=== PATIENT | female | born 1980 | race Caucasian/White ===

== ENCOUNTER → 2017-12-25 | Outpatient (CLI) | payer BC ==
--- NOTE | 2017-12-25 10:33 | WWHP ---
[facility] - HISTORY AND PHYSICAL DATE OF SERVICE: 12/25/2017 CHIEF COMPLAINT: The patient is here for her routine gynecologic exam and mammogram. HPI: This is a 37-year-old, G2, P2, with an LMP of 12/19/2017. Her is status post vasectomy. Menses have been regular every month. She is without gynecologic complaints. PAST MEDICAL HISTORY: Unremarkable. MEDICATIONS: None. ALLERGIES: Allergies to SULFA, which caused hives. PAST SURGICAL HISTORY: None. 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 SOCIAL HISTORY: She denies tobacco and drug use and has about one alcohol containing drink per month. 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 FAMILY HISTORY: Unchanged from the 03/01/2016 H and P. REVIEW OF SYSTEMS: She has lost about 6 pounds over the last 1-1/2 years. She states she has gone to a vegetarian diet. She denies respiratory, cardiac or GI problems. PHYSICAL EXAM: Blood pressure 107/74, height 5 feet 5 inches, weight 141 pounds, temperature 98.6, pulse 92, BMI 23. This is a well-developed, well-nourished, white female, who is alert and oriented x3, in no acute distress. HEENT is within normal limits. NECK: Supple without mass or thyromegaly. CHEST AND LUNGS: Clear to auscultation. HEART: Regular rate and rhythm. Breasts are without mass or discharge. Axillary exam is negative for adenopathy. BACK: Negative for CVA tenderness. ABDOMEN: Soft, nontender, without palpable masses. PELVIC EXAM: Normal external genitalia. Cervix and vagina revealed small amount of old menstrual type blood. There is no odor. The cervix and vagina appear normal. The uterus is mid position, nongravid size and nontender. There are no palpable adnexal masses or tenderness. Rectal exam is negative for mass or tenderness. EXTREMITIES: Nontender. IMPRESSION: 1. A 37-year-old gynecologically healthy female with normal gynecologic exam whose as is status post vasectomy. 2. Family history of breast cancer in a maternal and paternal aunt. PLAN: 1. Pap smear was performed by request of the patient even though I had not recommended Pap smear done at this visit because she had a normal one less than 2 years ago. 2. Self-breast examination was discussed. 3. Baseline screening mammogram will be done today because of her family history. 4. Osteoporosis prevention was discussed. 5. She will return in one year. MMODL / IJN: [id number] /
--- NOTE | 2017-12-25 10:34 | MM ---
Reason for exam: screening (asymptomatic). Baseline mammogram. History: Family history of breast cancer in maternal aunt and breast cancer in paternal aunt. Physical Findings: Dr. Jernigan did not find any significant physical abnormalities on exam. MG Screening Mammo w CAD Bilateral CC and MLO view(s) were taken. The breast tissue is heterogeneously dense. This may lower the sensitivity of mammography. There is no discrete abnormality. These results were verbally communicated with the patient and result sheet given to the patient on 12/25/17. ASSESSMENT: Negative, BI-RAD 1 RECOMMENDATION: Routine screening mammogram of both breasts at age 41.
== END | disposition home or self-care (01) ==
LOC: WWCWWP 09:04
PROVIDERS: ATTEND Obstetrics & Gynecology
DX: Z12.31 Encounter for screening mammogram for malignant neoplasm of breast (principal)
CPT/HCPCS: 77067

== ENCOUNTER → 2018-12-11 | Outpatient (CLI) | payer BC ==
[2018-12-11 10:39] LABS: Basophils % (A) 1 %; Eosinophils # (A) 0.1 k/uL (0-0.7); Eosinophils % (A) 2 %; HCT 40.8 % (34.0-46.0); HGB 12.8 gm/dL (11.4-16.0); Lymphocytes # (A) 1.4 k/uL (1.0-4.8); Lymphocytes % (A) 30 %; MCH 27.3 pg (25.0-35.0); MCHC 31.3 g/dL (31.0-37.0); MCV 87.2 fL (80.0-100.0); Mean Platelet Volume 7.5; Monocytes # (A) 0.3 k/uL (0-1.0); Monocytes % (A) 7 %; Neutrophils # (A) 2.9 k/uL (1.3-7.7); Neutrophils % (A) 59 %; Platelet Count 184 k/uL (150-450); RBC 4.68 m/uL (3.80-5.40); RDW 12.6 % (11.5-15.5); WBC 4.9 k/uL (3.8-10.6)
[2018-12-11 15:52] LABS: ALT 21 U/L (8-44); AST 25 U/L (13-35); Albumin/Globulin Ratio 2.15 (1.60-3.17); Alkaline Phosphatase 48 U/L (41-126); Calcium 9.3 mg/dL (8.7-10.3); Carbon Dioxide 29.2 mmol/L (21.6-31.8); Chloride 107 mmol/L (96-109); Cholesterol 129 mg/dL (0-200); Glucose 87 mg/dL (70-110); Potassium 4.3 mmol/L (3.5-5.5); Sodium 141 mmol/L (135-145); Total Bilirubin 0.9 mg/dL (0.2-1.2); Total Protein 6.3 g/dL (6.2-8.2); Triglycerides <50.0 mg/dL (0.0-149.0); VLDL Calculation 9.98 mg/dL (5.00-40.00)
== END ==
LOC: LABWHC1 09:39
PROVIDERS: ATTEND Nurse Practitioner Family
DX: Z00.00 Encounter for general adult medical examination without abnormal findings (principal); L65.9 Nonscarring hair loss, unspecified
CPT/HCPCS: 36415; 80053; 80061; 84439; 84443; 84481; 85025

== ENCOUNTER → 2019-02-18 | Outpatient (CLI) | payer BC ==
[2019-02-18 16:00] VITALS: BP 104/72; PULSE 75; RESP 20; TEMP 98.5; BMI 24.3
--- NOTE | 2019-02-18 16:43 | P.HPOB ---
History of Present Illness H&P Date: 02/18/19 Chief Complaint: The patient is here for routine gynecologic exam. This is a 38-year-old with an LMP of 02/03/2019. The patient is without gynecologic complaints. Her 's status post vasectomy. Review of Systems The patient has gained 5 pounds over the last year. She denies respiratory, cardiac, or G.I. problems. 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 - Past Family History Aunt Family Medical History: Cancer Additional Family Medical History / Comment(s): Maternal and paternal aunt had breast cancer in their 50s. Father Family Medical History: No Reported History Additional Family Medical History / Comment(s): Paternal grandmother had diabetes and heart disease. Medications and Allergies Home Medications Medication Instructions Recorded Confirmed Type No Known Home Medications 02/18/19 02/18/19 History Allergies Allergy/AdvReac Type Severity Reaction Status Date / Time Sulfa (Sulfonamide AdvReac Rash/Hives Unverified 02/18/19 15:55 Antibiotics) Exam Vital Signs Temp Pulse Resp BP 02/18/19 15:56 98.5 F 75 20 104/72 Intake and Output 02/18/19 02/18/19 02/18/19 06:59 14:59 22:59 Other: Weight 66.224 kg Height 5'5", weight 146 pounds, BMI 24.3. This is a well-developed well-nourished white female who is alert and oriented times 3 in no acute distress. HEENT: Within normal limits. NECK: Supple without mass or thyromegaly. CHEST AND LUNGS: Clear to auscultation. HEART: Regular rate and rhythm. BREASTS: Are without mass or discharge. AXILLARY EXAM: Negative for adenopathy. BACK: Negative for CVA tenderness. ABDOMEN: Soft, nontender, without palpable masses. PELVIC EXAM: Normal external genitalia. Cervix and vagina appear normal. There is no unusual discharge. There is no evidence of prolapse. The uterus is midposition, nongravid size and nontender. There are no palpable adnexal masses or tenderness. RECTAL EXAM: negative for mass or tenderness. EXTREMITIES: Nontender. IMPRESSION: 1. 38-year-old female whose is status post vasectomy with normal gynecologic exam. 2. Family history of breast cancer in 2 aunts. PLAN: 1. Pap smear was deferred since she had a normal one on 12/25/2017. 2. Self breast awareness was discussed with the patient. 3. She had a negative baseline screening mammogram on 12/25/2017. We will plan on starting regular mammograms at age 41. We will consider doing it earlier if she has new family history of breast cancer. 4. She states she is looking for a new primary care physician. 5. She was advised to return in one year for her annual well woman exam.
== END ==
LOC: WWCWWP 15:43
PROVIDERS: ATTEND Obstetrics & Gynecology
DX: Z53.9 Procedure and treatment not carried out, unspecified reason (principal)

== ENCOUNTER → 2021-12-13 | Outpatient (CLI) | payer BC ==
[2021-12-13 15:58] VITALS: BP 126/83; PULSE 79; RESP 18; TEMP 98.4
--- NOTE | 2021-12-13 16:31 | P.HPOB ---
History of Present Illness H&P Date: 12/13/21 Chief Complaint: The patient is here for her routine gynecologic exam. This is a 41-year-old with an LMP of 11/29/2021. The patient's is status post vasectomy. The patient is without gynecologic complaints. Review of Systems The patient has gained 2 pounds over the last 2 years. She denies respiratory, cardiac, or G.I. problems. 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 History of Any Multi-Drug Resistant Organisms: None Reported Past Surgical History: No Surgical Hx Reported Past Psychological History: No Psychological Hx Reported Smoking Status: Never smoker Past Alcohol Use History: Occasional (1 per month) Past Drug Use History: None Reported Additional History: She has been since 2008. 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 - Past Family History Father Family Medical History: No Reported History Additional Family Medical History / Comment(s): Paternal grandmother had diabetes and heart disease. Aunt Family Medical History: Cancer Additional Family Medical History / Comment(s): Maternal and paternal aunt had breast cancer in their 50s. Medications and Allergies Home Medications Medication Instructions Recorded Confirmed Type No Known Home Medications 02/18/19 12/13/21 History Allergies Allergy/AdvReac Type Severity Reaction Status Date / Time Sulfa (Sulfonamide AdvReac Rash/Hives Unverified 12/13/21 15:49 Antibiotics) Exam Vital Signs Temp Pulse Resp BP Pulse Ox 12/13/21 15:50 98.4 F 79 18 126/83 100 Intake and Output 12/13/21 12/13/21 12/13/21 06:59 14:59 22:59 Other: Weight 67.132 kg Height 5 feet 4-1/2 inches, weight 148 pounds, BMI 25.0. This is a well-developed well-nourished white female who is alert and oriented times 3 in no acute distress. HEENT: Within normal limits. NECK: Supple without mass or thyromegaly. CHEST AND LUNGS: Clear to auscultation. HEART: Regular rate and rhythm. BREASTS: Are without mass or discharge. AXILLARY EXAM: Negative for adenopathy. BACK: Negative for CVA tenderness. ABDOMEN: Soft, nontender, without palpable masses. PELVIC EXAM: Normal external genitalia. Cervix and vagina appear normal. There is no unusual discharge. There is no evidence of prolapse. The uterus is midposition, nongravid size and nontender. There are no palpable adnexal masses or tenderness. RECTAL EXAM: negative for mass or tenderness and is negative for occult blood. EXTREMITIES: Nontender. IMPRESSION: 1. 41-year-old female whose is status post vasectomy, with normal gynecologic exam. 2. Family history of breast cancer in 2 aunts. PLAN: 1. Pap smear cotest was performed. 2. Self breast awareness was discussed with the patient. We have also discussed symptoms associated with inflammatory breast cancer. 3. I recommended yearly screening mammogram because of her family history. The order slip was given to the patient for this. 4. Osteoporosis prevention was discussed. I have stressed the importance of adequate calcium, vitamin D and regular exercise. Recommended amounts of calcium and vitamin D were also discussed. 5. She has received her Covid vaccination series and booster. 6. She was advised to return in one year for her annual well woman exam.
== END ==
LOC: WWCWWP 15:41
PROVIDERS: ATTEND Obstetrics & Gynecology
DX: Z01.419 Encounter for gynecological examination (general) (routine) without abnormal findings (principal); Z80.3 Family history of malignant neoplasm of breast; Z88.2 Allergy status to sulfonamides

== ENCOUNTER → 2022-01-19 | Outpatient (CLI) | payer BC ==
--- NOTE | 2022-01-19 14:24 | MM ---
Reason for exam: screening (asymptomatic). Last mammogram was performed 4 years and 1 month ago. History: Family history of breast cancer in 2 paternal aunts at age 50. Physical Findings: A clinical breast exam by your physician is recommended on an annual basis and results should be correlated with mammographic findings. MG 3D Screening Mammo W/Cad Bilateral CC and MLO view(s) were taken. Prior study comparison: December 25, 2017, bilateral MG screening mammo w CAD. The breast tissue is extremely dense which could obscure a lesion on mammography. Asymmetric breast tissue in the left axilla is stable. There is no discrete abnormality. ASSESSMENT: Negative, BI-RAD 1 RECOMMENDATION: Routine screening mammogram of both breasts in 1 year. Some consider bilateral ultrasound surveillance in patient with extremely dense fibroglandular tissue.
== END | disposition home or self-care (01) ==
LOC: RADMAMWWP 07:28
PROVIDERS: ATTEND Obstetrics & Gynecology
DX: Z12.31 Encounter for screening mammogram for malignant neoplasm of breast (principal); Z80.3 Family history of malignant neoplasm of breast
CPT/HCPCS: 77063; 77067

== ENCOUNTER → 2023-04-17 | Outpatient (CLI) | payer BC ==
--- NOTE | 2023-04-18 08:51 | MM ---
Reason for Exam: Screening (asymptomatic). Last mammogram was performed 1 year(s) and 3 month(s) ago. Patient History: Menarche at age 15. First Full-Term at age 28. Patient has history of breast feeding. Paternal aunt had breast cancer, age 50. Paternal aunt had breast cancer, age 50. Last menstrual period: 03/22/2023 Risk Values: [place] 5 year model risk: 0.6%. NCI Lifetime model risk: 10.1%. Prior Study Comparison: 12/25/2017 Bilateral Screening Mammogram, [facility]. 01/19/2022 Bilateral Screening Mammogram, [facility]. Tissue Density: The breast tissue is heterogeneously dense. This may lower the sensitivity of mammography. Findings: Analyzed By CAD. There is no suspicious group of microcalcifications or new suspicious mass in either breast. Overall Assessment: Negative, BI-RAD 1 Management: Screening Mammogram of both breasts in 1 year. . Patient should continue monthly self-breast exams. A clinical breast exam by your physician is recommended on an annual basis. This exam should not preclude additional follow-up of suspicious palpable abnormalities. Note on Naida scores and lifetime risk: 1. A Naida score greater than 3% is considered moderate risk. If this is the case, consider specialist referral to assess eligibility for a risk reducing agent. 2. If overall lifetime risk for the development of breast cancer is 20% or higher, the patient may qualify for future screening with alternating mammogram and breast MRI. Electronically signed and approved by: Valente West M.D. Radiologis
== END | disposition home or self-care (01) ==
LOC: RADMAMWWP 08:11
PROVIDERS: ATTEND Obstetrics & Gynecology
DX: Z12.31 Encounter for screening mammogram for malignant neoplasm of breast (principal); Z80.3 Family history of malignant neoplasm of breast
CPT/HCPCS: 77063; 77067

== ENCOUNTER → 2024-05-06 | Outpatient (CLI) | payer BC ==
[2024-05-06 09:23] VITALS: BP 108/78; PULSE 74; RESP 16; TEMP 98.3
--- NOTE | 2024-05-06 10:18 | P.HPOB ---
History of Present Illness H&P Date: 05/06/24 Chief Complaint: The patient is here for her routine gynecologic exam and ma mmogram. This is a 43-year-old with an LMP of December 2023. Patient's is status post vasectomy. She states her menstrual periods were getting more irregular about every 1 to 3 months. She was also having significant hot flashes at night. She started using HRT through Dr. Solis in 2022. She states that it has helped significantly. She uses some form of hormone pellet which includes estrogen and testosterone every 3 months. She takes progesterone 200 mg daily. She is without gynecologic complaints. Her last Pap smear cotest showed ASCUS with negative high-risk HPV testing on 12/13/2021. Review of Systems The patient has gained 5 pounds over the last year. She denies respiratory, cardiac, or G.I. problems. 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 History of Any Multi-Drug Resistant Organisms: None Reported Past Surgical History: No Surgical Hx Reported Past Psychological History: No Psychological Hx Reported Smoking Status: Never smoker Past Alcohol Use History: None Reported Past Drug Use History: None Reported Additional History: She has been since 2008. 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 - Past Family History Father Family Medical History: No Reported History Additional Family Medical History / Comment(s): Paternal grandmother had diabetes and heart disease. Aunt Family Medical History: Cancer Additional Family Medical History / Comment(s): Maternal and paternal aunt had breast cancer in their 50s. Medications and Allergies Home Medications Medication Instructions Recorded Confirmed Type Biote Pellet 50 mg SUBDERMAL DIRECTED 05/06/24 History Progesterone, Micronized 200 mg PO DAILY 05/06/24 05/06/24 History [Progesterone] Allergies Allergy/AdvReac Type Severity Reaction Status Date / Time Sulfa (Sulfonamide AdvReac Rash/Hives Unverified 05/06/24 09:15 Antibiotics) Exam Vital Signs Temp Pulse Resp BP Pulse Ox 05/06/24 09:21 98.3 F 74 16 108/78 100 Intake and Output 05/05/24 05/06/24 05/06/24 22:59 06:59 14:59 Other: Weight 75.296 kg Height 5 feet 5 inches, weight 166 pounds, BMI 27.6. This is a well-developed well-nourished white female who is alert and oriented times 3 in no acute distress. HEENT: Within normal limits. NECK: Supple without mass or thyromegaly. CHEST AND LUNGS: Clear to auscultation. HEART: Regular rate and rhythm. BREASTS: Are without mass or discharge. AXILLARY EXAM: Negative for adenopathy. BACK: Negative for CVA tenderness. ABDOMEN: Soft, nontender, without palpable masses. PELVIC EXAM: Normal external genitalia. Cervix and vagina appear normal. There is no unusual discharge. There is no evidence of prolapse. The uterus is midposition, nongravid size and nontender. There are no palpable adnexal masses or tenderness. RECTAL EXAM: negative for mass or tenderness and is negative for occult blood. EXTREMITIES: Nontender. IMPRESSION: 1. 43-year-old perimenopausal female whose is status post vasectomy on HRT through a different personal development mentor, with normal gynecologic exam 2. Previous Pap smear on 12/13/2021 showed ASCUS with negative high-risk HPV testing PLAN: 1. Pap smear cotest was performed. 2. Self breast awareness was discussed with the patient. We have also discussed symptoms associated with inflammatory breast cancer. 3. Screening mammogram will be done today. 4. Osteoporosis prevention was discussed. I have stressed the importance of adequate calcium, vitamin D and regular exercise. Recommended amounts of c alcium and vitamin D were also discussed. 5. We have discussed HRT as well as possible risks and is demonstrated by the WHI study. We have discussed the possible increased risk for heart attack, str laureano, and breast cancer as well as increased risk for blood clotting. I recommended that she use the lowest effective dose for the shortest amount of time this will be determined by the patient and Dr. Solis, who has been providing the HRT. 6. She was advised to return in one year for her annual well woman exam.
--- NOTE | 2024-05-10 17:08 | MM ---
Reason for Exam: Screening (asymptomatic). Last mammogram was performed 1 year(s) and 1 month(s) ago. Patient History: Menarche at age 15. First Full-Term at age 28. Patient has history of breast feeding. Paternal aunt had breast cancer, age 50. Paternal aunt had breast cancer, age 50. Risk Values: Naida 5 year model risk: 0.7%. NCI Lifetime model risk: 10.0%. Prior Study Comparison: 12/25/2017 Bilateral Screening Mammogram, [facility]. 01/19/2022 Bilateral Screening Mammogram, [facility]. 04/17/2023 Bilateral MG 3D screening mammo w/cad, [facility]. Tissue Density: The breasts are heterogeneously dense, which may obscure small masses. Findings: Analyzed By CAD. Areas of asymmetric density are unchanged. There is no suspicious group of microcalcifications or new suspicious mass in either breast. Overall Assessment: Benign, BI-RAD 2 Management: Screening Mammogram of both breasts in 1 year. . Patient should continue monthly self-breast exams. A clinical breast exam by your physician is recommended on an annual basis. This exam should not preclude additional follow-up of suspicious palpable abnormalities. Note on Naida scores and lifetime risk: 1. A Naida score greater than 3% is considered moderate risk. If this is the case, consider specialist referral to assess eligibility for a risk reducing agent. 2. If overall lifetime risk for the development of breast cancer is 20% or higher, the patient may qualify for future screening with alternating mammogram and breast MRI. Electronically signed and approved by: Lis Blakely M.D. Radiologist
--- NOTE | 2024-05-20 16:36 | P.PN ---
Progress Note - Text Progress Note Date: 05/20/24 OUTPATIENT FOLLOW-UP NOTE TEST(S)/RESULTS: Test results from May 06, 2024 include negative Pap smear with negative high risk HPV (negative cotest) and benign mammogram. METHOD OF NOTIFICATION: the patient was notified by phone on 05/20/2024. PATIENT COMMENTS: the patient is happy to hear these results. DIAGNOSIS: Negative Pap smear cotest and benign mammogram. DISCUSSION: The patient's previous Pap smear cotest on 12/13/2021 showed ASCUS with negative high-risk HPV testing. With the negative Pap smear cotest this year, the ASCCP management guidelines recommends follow-up in 5 years with a 0.14% 5-year risk of SHANNON-3 or greater. PLAN: The patient is to return in one year for her annual well woman exam.
== END | disposition home or self-care (01) ==
LOC: WWCWWP 08:43
PROVIDERS: ATTEND Obstetrics & Gynecology
DX: Z12.31 Encounter for screening mammogram for malignant neoplasm of breast (principal); R92.333 Mammographic heterogeneous density, bilateral breasts; R92.8 Other abnormal and inconclusive findings on diagnostic imaging of breast; Z78.0 Asymptomatic menopausal state; Z80.3 Family history of malignant neoplasm of breast; Z88.2 Allergy status to sulfonamides
CPT/HCPCS: 77063; 77067